=== PATIENT | male | born 1980 | race Caucasian/White ===

== ENCOUNTER 2020-05-14 13:39 | Emergency (ER) | payer BC, SELFPAY ==
[2020-05-14 13:52] VITALS: BP 169/108; PULSE 108; RESP 16; TEMP 36.8; O2SAT 99
--- NOTE | 2020-05-14 14:10 | ED.WOUNDLAC ---
HPI - Wound/Laceration General Chief Complaint: Wound/Laceration Stated Complaint: spider bite Time Seen by Provider: 05/14/20 14:11 Source: patient Mode of arrival: ambulatory Limitations: no limitations History of Present Illness HPI narrative: Masood Levi is a 39 yo male with no PMH who [facility] with an area of redness and tenderness over his left nipple, 2 x 3 cm. small dot removed about 3 inches, no tenderness Started yesterday, patient thinks it is a spider bite-he has been doing some work and thinks that maybe he became in contact with a spider. States he has no normal high blood pressure but is very anxious about being here Related Data Allergies Allergy/AdvReac Type Severity Reaction Status Date / Time Penicillins Allergy Swelling Verified 05/14/20 13:44 Review of Systems Review of Systems: Narrative: CONSTITUTIONAL: Denies fever, chills, sweats. EYES: Denies visual changes, redness, discharge. ENT: Denies rhinorrhea, congestion, sore throat, otalgia. CARDIOVASCULAR: Denies chest pain, palpitations, edema. RESPIRATORY: Denies dyspnea, wheezing, cough GASTROINTESTINAL: Denies abdominal pain, nausea, vomiting, diarrhea. GENITOURINARY: Denies dysuria, hematuria, abnormal discharge SKIN: Area of redness and tenderness over the left nipple, small area removed from nipple not tender to touch NEUROLOGIC: Denies numbness, or focal weakness. PSYCHIATRIC: Denies anxiety or depression. PMFSH Past Medical History Medical History No acute medical problems Family History Family History Other No acute medical problems Social History Social History (Updated 05/14/20 @ 14:36 by Roxanne Robin CNP) Smoking packs per day: 0.25 Smoking cigarettes per day: 5.0 Smoking status: Current every day smoker Tobacco type: cigarettes Alcohol intake: current Comments At time of signature, I agree with nursing past medical, surgical, social and family history. There is no relevant family history pertinent to the presenting complaint. Patient has no history of hypertension and should follow-up with his primary care physician Exam Narrative: Exam Narrative: GENERAL: This is a well-nourished, well-developed patient, in mild distress. HEAD: normocephalic, atraumatic. EYES: . Sclera clear/white. Vision is grossly intact. EARS: External ears normal. Hearing grossly intact. NOSE: External nose normal without nasal discharge, nares without redness, no rhinorrhea. THROAT: Mucous membranes moist, NECK: Neck supple, non-tender CARDIOVASCULAR: Regular rate and rhythm without murmurs, gallops, or rubs. RESPIRATORY: Clear to auscultation. Breath sounds equal bilaterally. No wheezes, rales, or rhonchi. GASTROINTESTINAL: Abdomen soft, SKIN: warm, intact with erythema over L nipple, 2x3, tender, no fluctuance. 1 small (<.5) area 3 inches removed from main area, minimal swelling NEURO: awake, alert, and oriented to person, place and time. There were no obvious focal neurologic abnormalities. Steady gait EXTREMITIES: Normal range of motion. BACK: Nontender without deformity Course Course Emergency Course: [facility] with redness and tenderness over the left nipple area about 2 x 3 with one small dot a couple inches removed on upper right chest, no fluctuance no drainage Started on Bactrim and Keflex next directed to use warm soaks to not try to open area and keep covered Follow-up with PCP Vital Signs Vital signs: Vital Signs Temperature 98.3 F 05/14/20 13:52 Pulse Rate 108 H 05/14/20 13:52 Respiratory Rate 16 05/14/20 13:52 Blood Pressure 169/108 H 05/14/20 13:52 Pulse Oximetry 99 05/14/20 13:52 Temperature 98.3 F 05/14/20 13:52 Pulse Rate 108 H 05/14/20 13:52 Respiratory Rate 16 05/14/20 13:52 Blood Pressure 169/108 H 05/14/20 13:52 Pulse Oximetry 99 0
== END 2020-05-14 14:48 | disposition home or self-care (01) ==
PROVIDERS: Emergency Provider Nurse Practitioner; PCP Physician Assistant
DX: L03.313 Cellulitis of chest wall (principal); F17.210 Nicotine dependence, cigarettes, uncomplicated
CPT/HCPCS: 99213; G0463

== ENCOUNTER 2020-12-23 11:04 | Emergency (ER) | payer BC, SELFPAY ==
[2020-12-23 11:10] VITALS: BP 142/78; PULSE 85; RESP 16; TEMP 36.6; O2SAT 100
--- NOTE | 2020-12-23 11:56 | ED.EYEPROB ---
HPI - Eye Problem General Chief complaint: Eye Problems Stated complaint: eye swelling/redness Source: patient and RN notes reviewed Mode of arrival: ambulatory History of Present Illness HPI Narrative: This is a 40-year-old male who presented to urgent care with complaints of left lower eyelid lesion swelling and redness. According to patient Monday he felt like he has something in his eye in attempt to remove the object. He notes that on Monday he started to experiencing swelling to the lower left eyelid and today the redness appeared. He does deny any visual disturbance. The patient denies SOB, CP, palpitation, extremity numbness, lightheadedness, dizziness, constipation, diarrhea, chills, or fever. MD chief complaint: eye pain and eye redness Related Data Allergies Allergy/AdvReac Type Severity Reaction Status Date / Time Penicillins Allergy Swelling Verified 10/01/20 15:05 Review of Systems Review of Systems: A 14 organ system Review of Systems was performed and pertinent positives included in the HPI, otherwise remaining ROS is negative. [facility] Past Medical History Medical History No acute medical problems Family History Family History Father Acute myocardial infarction Heart disease Diabetes mellitus Hypertension Mother No problems noted. Sibling Lymphoma Other No acute medical problems Social History Social History Smoking packs per day: 0.25 Smoking cigarettes per day: 5.0 Smoking status: Current every day smoker Tobacco type: cigarettes Alcohol intake: current Exam Narrative: GENERAL: This is a well-nourished, well-developed patient, in no apparent distress. HEAD: normocephalic, atraumatic. EYES: PERRL. Sclera clear/white. Vision is grossly intact. Left lower eyelid edematous with erythema tenderness to lower eyelid EARS: External ears normal, auditory canals clear and without drainage, TMs normal without perforation. Hearing grossly intact. NOSE: External nose normal with no obvious nasal discharge, nares without redness, no rhinorrhea. THROAT: Mucous membranes moist, posterior pharynx clear. NECK: Neck supple, non-tender without lymphadenopathy, masses or thyromegaly. CARDIOVASCULAR: Regular rate and rhythm without murmurs, gallops, or rubs. RESPIRATORY: Clear to auscultation. Breath sounds equal bilaterally. No wheezes, rales, or rhonchi. GASTROINTESTINAL: Abdomen soft, non-tender, nondistended. Bowel sounds are active. No hepato-splenomegaly, or palpable masses. No guarding. SKIN: warm, intact with no suspicious lesions or rash, good texture and turgor. NEURO: awake, alert, and oriented to person, place and time. There were no obvious focal neurologic abnormalities. Steady gait EXTREMITIES: Normal range of motion. No edema. No calf tenderness. Negative Homans sign bilaterally. BACK: Nontender without deformity or crepitance. No flank tenderness. Course Course Emergency Course: Patient will discharge with doxycycline and erythromycin ointment Vital Signs Vital signs: Vital Signs Temperature 97.9 F 12/23/20 11:10 Pulse Rate 85 12/23/20 11:10 Respiratory Rate 16 12/23/20 11:10 Blood Pressure 142/78 H 12/23/20 11:10 Pulse Oximetry 100 12/23/20 11:10 Temperature 97.9 F 12/23/20 11:10 Pulse Rate 85 12/23/20 11:10 Respiratory Rate 16 12/23/20 11:10 Blood Pressure 142/78 H 12/23/20 11:10 Pulse Oximetry 100 12/23/20 11:10 MDM - Eye Problem Differential Diagnosis Differential diagnosis: Likely corneal abrasion, conjunctivitis, acute iritis, subconjunctival hemorrhage, corneal ulcer and other (Abscess to the left lower eyelid) Discharge Plan Discharge Clinical Impression: Bacterial conjunctivitis, Abscess Patient Disposition: Home, Self-Care Condition: Stable
== END 2020-12-23 12:00 | disposition home or self-care (01) ==
PROVIDERS: Emergency Provider Nurse Practitioner; PCP Physician Assistant
DX: H10.9 Unspecified conjunctivitis (principal); H00.035 Abscess of left lower eyelid; F17.210 Nicotine dependence, cigarettes, uncomplicated
CPT/HCPCS: 99213; G0463

== ENCOUNTER 2024-10-24 09:43 | Emergency (ER) | payer BC, SELFPAY ==
--- NOTE | 2024-10-24 10:03 | ED.GENADULT ---
HPI - General Adult General Chief complaint: Cardiac Arrest/CPR Stated complaint: cardiac arrest History of Present Illness HPI narrative: Patient 44-year-old gentleman presents emergency department with chief complaint of cardiac arrest. Per discussion with the family the patient had been feeling not well since yesterday has started having some shortness of breath the family had noticed that his oxygen levels were running in the upper 80s on a home pulse oximeter and the patient became progressively more short of breath and this morning collapsed EMS was called and CPR was started by the family. Related Data Allergies Allergy/AdvReac Type Severity Reaction Status Date / Time Penicillins Allergy Swelling Verified 10/01/20 15:05 Review of Systems Review of Systems: ROS unobtainable: Yes unobtainable due to endotracheal tube and unobtainable due to medical condition PMFSH Past Medical History Medical History No acute medical problems Family History Family History Father Acute myocardial infarction Heart disease Diabetes mellitus Hypertension Mother No problems noted. Sibling Lymphoma Other No acute medical problems Social History Social History Smoking packs per day: 0.25 Smoking cigarettes per day: 5.0 Smoking status: Current every day smoker Tobacco type: cigarettes Alcohol intake: current Exam Narrative: GENERAL: Ill-appearing intubated, unresponsive. HEAD: Normocephalic, atraumatic. EYES: Fixed dilated. ENT: Nares clear, no rhinorrhea or epistaxis. Mucous membranes moist. NECK: Supple. CHEST: Clear to auscultation with bag-valve ventilation. No spontaneous respirations,. HEART: No cardiac sounds present David device in place providing compression pulse present with compression ABDOMEN: Soft, nontender, distended . EXTREMITIES: No signs of trauma. SKIN: Warm, dry, no rash. NEURO: Unresponsive PSYCH: Unresponsive Medical Decision Making MDM Narrative Medical decision making narrative: The CPR was initiated by family prior to EMS arrival upon EMS arrival ACLS protocols were initiated patient was initially PE a ACLS was initiated the patient had a run of VFib was cardioverted and amiodarone was administered patient was intubated and transported the patient had a low blood sugar in the field and D10 was hung on the patient upon arrival to the emergency department ACLS was still in progress patient was asystole on initial rhythm check patient received multiple doses of epinephrine blood sugar was corrected with D50 patient remained in asystole. It was discussed with the patient's family they did not feel as though he would want to live with severe disability or would not want to go through significantly invasive methods to keep him alive the family was allowed to come back to the room and the decision to cease resuscitative efforts was made at that time as the patient was still asystole even after multiple rounds of ACLS. Discharge Plan Discharge Clinical Impression: Cardiac arrest Patient Disposition: Condition: Patient Language: Latvian Prescriptions: No Action erythromycin 5 mg/gram (0.5 %) ointment 0.5 inch LEFT EYE QID 5 Days Qty: 50 0RF doxycycline hyclate 100 mg tablet 100 mg PO Q12H 5 Days Qty: 10 0RF hydrocodone-acetaminophen 5-325 mg tablet 1 tablet PO Q8H PRN (Reason: pain) Qty: 7 0RF Follow-up/Referrals: Cortez,JHONNY Hightower [Primary Care Provider] - Time of Disposition: 10:00
--- OUTSIDE RECORDS SUMMARY | 2024-10-24 10:06 | XMS_ITS | Clinical Summary ---
Author Organization [facility] Address [address] [place] [address] Care Team Providers Care Project Inspector Name Role Phone Unknown, Provider Primary Care Provider Unavaila ble Source Comments [facility],non-owned Affiliates and Associated Physician Practices is amultiple site organization consisting of ambulatory clinics and hospital sitesin [place], [place], [place] and [place]. This disclosure is being madepursuant to the Care Everywhere program and may not contain all information available regarding this patient. Last updated 18.[facility] [employer] Allergies No known active allergies Medications * Be aware that medications may not be up to date on this document. Alwaysverify current medications with the patient. No known medications Social History Tobacco Use Types Packs/Day Years Used Date Smoking Tobacco: Every Day Cigarettes 0.5 10 Smokeless Tobacco: Never Sex and Gender Information Value Date Recorded Sex Assigned at Not on file Legal Sex Male 3:[address] REPORTER Gender Identity Male 05/16/2019 3:[address] REPORTER Sexual Orientation Not on file Last Filed Vital Signs Vital Sign Reading Time Taken Comments Blood Pressure 130/62 05/16/2019 3:[address] REPORTER Pulse 117 05/16/2019 3:[address] REPORTER Temperature 37.6 C (99.6 F) 05/16/2019 3:[address] REPORTER Respiratory Rate 16 05/16/2019 3:[address] REPORTER Oxygen Saturation 97% 05/16/2019 3:[address] REPORTER Inhaled Oxygen Concentration - - Weight 93 kg (205 lb) 05/16/2019 3:[address] REPORTER Height 177.8 cm (5' 10) 05/16/2019 3:[address] REPORTER Body Mass Index 29.41 05/16/2019 3:[address] REPORTER Plan of Treatment Health Maintenance Due Date Last Done Comments LIPID TESTING 1980 HIV SCREENING 10/20/1995 HEPATITIS C SCREENING 10/15/1998 DTAP/TDAP/TD VACCINES (1 - Tdap) 10/20/1999 HEPATITIS B VACCINE (1 of 3 - 19+ 3-dose series) 10/20/1999 COVID-19 VACCINE (1 - 2023-2 5 season) 2023 DEPRESSION SCREENING 04/24/2024 INFLUENZA VACCINE (Season Ended) 2024 ZOSTER VACCINE (1 of 2) 2030 HIB VACCINE Aged Out No longer eligi ble based on patient's age to complete this topic HPV VACCINE Aged Out No longer eligi ble based on patient's age to complete this topic MENINGOCOCCAL (Group B) VACC INE SHARED DECISION-MAKING Aged Out No longer eligibl e based on patient's age to complete this topic MENINGOCOCCAL GROUPS A/C/Y/W VACCINE Aged Out No longer eligible b ased on patient's age to complete this topic PNEUMOCOCCAL VACCINE Aged Out No long er eligible based on patient's age to complete this topic Insurance [employer] Care Teams Project Inspector Relationship Specialty Start Date End Date Unknown, Provider PCP - General 05/16/19
--- NOTE | 2024-10-24 13:45 | PCCCNOTE ---
Late entry for 0940. Called to the ED for a code blue. Met the family in the lobby, , three sons, mother, sister and brother in law. The stated on 10/23/24 the pt came home from work and reported he didn't feel good. Stated he thought he may be dehydrated and the gave him some Gatorade. Stated he slept on the couch last night. Stated today he had c/o shortness of breath and checked his pulse ox and it was in the 80's. He stated he needed to urinate and when ambulated to the bathroom he collapsed. She stated she grabbed him and assisted him to the floor trying to prevent him hitting his head. When he was on the floor was unresponsive. 911 was then activated to the home. Denies the pt to have a cardiac hx, to be on any medications, or have any allergies shared this with the ED provider. . The ED provider communicated the pt's status with the and the ultimately stated she didn't want her to live with any possibility of severe neurologic disfunction and was okay with CPR being stopped. Supplied the family with counseling resources and offered to contact any jewish affiliation. Stayed with the family until they left the building.--bertrand
== END 2024-10-24 12:05 | disposition expired ==
PROVIDERS: Emergency Provider Emergency Medicine; PCP Physician Assistant
DX: I46.9 Cardiac arrest, cause unspecified (principal); E16.2 Hypoglycemia, unspecified; F17.210 Nicotine dependence, cigarettes, uncomplicated
CPT/HCPCS: 82948; 92950; 99285; J0168